=== PATIENT | female | born 1950 | race Caucasian/White ===

== ENCOUNTER 2023-10-07 18:51 | Inpatient (IN) | payer MEDICARE, SELFPAY ==
[2023-10-07] VITALS (7 sets, daily range): BP systolic 104–125; BP diastolic 77–100; PULSE 144–158; RESP 24–37; TEMP 36.6; O2SAT 88–99; BMI 19.8
--- NOTE | 2023-10-07 19:27 | XRR_ITS ---
PROCEDURE INFORMATION: Exam: XR Chest Exam date and time: 10/07/2023 8:15 PM Age: 72 years old Clinical indication: Patient HX: EMS arrival for general weakness. Afib rvr on monitor. TECHNIQUE: Imaging protocol: Radiologic exam of the chest. Views: 1 view. COMPARISON: No relevant prior studies available. FINDINGS: Lungs: Bibasilar infiltrates. Pleural spaces: Unremarkable. No pleural effusion. No pneumothorax. Heart/Mediastinum: Unremarkable. No cardiomegaly. Bones/joints: Unremarkable. XR/XR chest 1V portable [id number] IMPRESSION: Bibasilar infiltrates. Edema versus infection.
[2023-10-07] MEDS: sodium chloride 0.9% 500 ML IV (19:43)
[2023-10-07 20:14] LABS: Basophils % 0.1 %; Hematocrit 43.6 % (36-47); Lymphocytes # 0.4 10^3/uL (0.8-4.8); Lymphocytes % 2.3 %; Mean Corpuscular HGB Conc 30.3 g/dL (30-55); Mean Corpuscular Hemoglobin 28.7 pg (27-33); Mean Corpuscular Volume 94.8 fl (85-98); Mean Platelet Volume 11.2 fL (7.4-10.4); Monocytes # 0.9 10^3/uL (0.2-0.9); Monocytes % 5.3 %; Neutrophils # 14.82 10^3/uL (1.8-7.7); Neutrophils % 91.7 %; Nucleated Red Blood Cells % 0.2 %; Platelet Count 127 10^3/cmm (157-399); Red Cell Distribution Width 15.4 % (12.1-15.1); White Blood Count 16.18 10^3/uL (3.29-11.43)
--- NOTE | 2023-10-07 20:14 | ED_ITS ---
Documented by User: John Pond 10/07/23 22:27 HPI - Weakness 2 General: Chief complaint: Weakness Stated complaint: WEAKNESS Time Seen by Provider: 10/07/23 19:07 History of Present Illness: 72-year-old female presents emergency de partment chief complaint of generalized weakness and fatigue. Patient presents from home for further assessment and management patient was picked up by EMS was found to be A-fib with RVR patient has no known history of this in the past patient reports progressive shortness of breath with no chest pain. Associated symptoms: Denies chest pain, chills, fever(s), headache(s), nausea or vomiting Review of Systems 2 General: Reports: 10 or more systems reviewed and unremarkable except in HPI and below Const: Reports: fatigue and malaise; Denies: fever(s) or chills Eyes: Denies: change in vision or blurry vision Card: Reports: palpitations and irregular heart rhythm; Denies: chest pain Resp: Denies: dyspnea or productive cough GI: Denies: abdominal pain, nausea or vomiting : Denies: flank pain Musc: Denies: extremity pain or extremity swelling Skin/Breast: Denies: rash or pruritus Neuro: Denies: headache(s) Psych: Denies: anxiety or depression Jacob/Lymph: Denies: easy bleeding All/Imm: Denies: urticaria, throat swelling or facial swelling Physical Exam 2 Const: COMMON NORMALS: no acute distress (Patient however does appear somewhat anxious on exam), patient oriented x3 and healthy appearing HENMT: COMMON NORMALS: normocephalic and atraumatic HEAD & SCALP: n ormocephalic and atraumatic Eye: COMMON NORMALS: Equal, round and reactive pupils present and EOMs intact bilaterally PUPIL: Yes Equal, round and reactive pupils present Neck/C-Spine: COMMON NORMALS: full ROM, supple and no JVD Lymph: LYMPHATIC: no lymphadenopathy noted Chest: COMMONS NORMALS: normal inspection of the chest and normal palpation of entire chest wall Resp: COMMON NORMALS: normal respiratory effort, No retractions and clear to auscultation bilaterally EFFORT & INSPECTION: Yes able to speak in complete sentences and Yes symmetric chest movement AUSCULTATION: clear to auscultation bilaterally Cardio: COMMON NORMALS: no JVD and regular rate; negative for regular rhythm (Appears to be in A-fib with RVR rate of 130) R ATE: regular rate RHYTHM: abnormal rhythm (Appears to be in A-fib with RVR rate of 130) GI: COMMON NORMALS: Normal to inspection, nondistended, normoactive bowel sounds present, Soft to palpation and non-tender INSPECTION: Yes normal to inspection PALPATION: Yes Soft to palpation : COMMON NORMALS: Yes no CVA tenderness BLADDER/KIDNEY EXAM: Yes no CVA tenderness Back/Pelvis: COMMON NORMALS: no CVA tenderness Extremity: COMMON NORMALS: normal to inspection and full ROM Neuro: COMMON NORMALS: patient oriented x3, CN's II-XII intact bilaterally, moves all extremities and no focal motor deficits Psych: COMMON NORMALS: mental status grossly normal, Normal thought process present, cooperative and normal affect THOUGHT PROCESS: Normal thought process present Skin: COMMON NORMALS: no rashes or lesions noted GENERAL SKIN EXAM: no rashes or lesions noted Course 2 Vital Signs: Vital signs: Vital Signs Temperature 98 F 10/07/23 18:53 Pulse Rate 124 H 10/08/23 03:26 Respiratory Rate 22 H 10/08/23 02:30 Blood Pressure 108/85 10/08/23 02:30 Pulse Oximetry 98 10/08/23 03:26 Oxygen Delivery Me thod Nasal Cannula, Bi PAP 10/08/23 03:21 Oxygen Flow Rate 2 10/08/23 02:30 Fraction of Inspir ed Oxygen 32 10/08/23 03:26 MDM - Weakness Medical Decision Making Due to patient's symptoms and condition lab work and imaging will be obtained we will continue to follow. Patient was found to be in A-fib with RVR Concerns of sepsis due to most likely lactic acidosis due to anion gap and low CO2 patient was provided a dose of Rocephin, awaiting CT imaging of chest abdomen pelvis to result. Patient first troponin was found to be at 386 with no renal impairment to this patient was started on a Cardizem bolus drip followed by heparin discussed patient's case with Dr. garcía. This patient was signed out to my colleague Dr. Bansal at 2220. Lab Data 10/07/23 20:04 10/07/23 20:04 Radiology Impressions Chest X-Ray 10/07/23 19:27 IMPRESSION: Bibasilar infiltrates. Edema versus infection. Chest/Abdomen/Pelvis CT 10/07/23 20:37 IMPRESSION: 1. Positive for moderate to large volume bilateral pulmonary artery embolism greater in volume on right than left. 2. Dilated cardiomyopathy, bilateral pleural effusions and widespread ground-glass opacities of the lung alvarez suspicious for congestive heart failure. 3. Lung opacities may represent combination of pulmonary edema and pulmonary infarcts. 4. Indeterminate large lobulated left breast mass. This is possibly related to left breast implant rupture with granulomatous reaction, but a breast malignancy is not excluded. IMPRESSION: 1. Heterogeneously enhancing hypervascular right kidney mass consistent with a renal cell carcinoma with likely tumor thrombus extension through the right renal vein into the IVC. 2. Diffuse abdominopelvic 3rd spacing of fluid. 3. No focal acute abdominopelvic pathology. Laboratory Results WBC 16.18 10^3/uL (3.29-11.43) H 10/07/23 20:04 RBC 4.60 10^6/uL (3.85-5.65) 10/07/23 20:04 Hgb 13.20 g/dL (11.27-16.99) 10/07/23 20:04 Hct 43.6 % (36-47) 10/07/23 20:04 MCV 94.8 fl (85-98) 10/07/23 20:04 MCH 28.7 pg (27-33) 10/07/23 20: MCHC 30.3 g/dL (30-55) 10/07/23 20:04 RDW 15.4 % (12.1-15.1) H 10/07/23 20:04 Plt Count 127 10^3/cmm (157-399) L 10/07/23 20:04 MPV 11.2 fL (7.4-10.4) H 10/07/23 20:04 Neut % (Auto) 91.7 % 10/07/23 20:04 Lymph % (Auto) 2.3 % 10/07/23 20: Russell % (Auto) 5.3 % 10/07/23 20: Eos % (Auto) 0.0 % 10/07/23 20:04 Baso % (Auto) 0.1 % 10/07/23 20:04 Neut # (Auto) 14.82 10^3/uL (1.8-7.7) H 10/07/23 20:04 Lymph # (Auto) 0.4 10^3/uL (0.8-4.8) L 10/07/23 20:04 Russell # (Auto) 0.9 10^3/uL (0.2-0.9) 10/07/23 20:04 Eos # (Auto) 0.0 10^3/uL (0.0-0.8) 10/07/23 20:04 Baso # (Auto) 0.0 10^3/uL (0.0-0.1) 10/07/23 20:04 Nucleated RBC % (auto) 0.2 % 10/07/23 20:04 Nucleated RBCs # 0.0 /100WBC 10/07/23 20:04 PT 18.10 SECONDS (12.1-14.9) H 10/07/23 20:04 INR 1.45 (0.8-1.2) H 10/07/23 20:04 APTT 28.5 SECONDS (23.9-36.7) 10/07/23 20:04 Sodium 134 mmol/L (136-145) L 10/07/23 20:04 Potassium 5.6 mmol/L (3.5-5.1) H 10/07/23 20:04 Chloride 102 mmol/L (98-107) 10/07/23 20:04 Carbon Dioxide 18 mmol/L (22-29) L 10/07/23 20:04 Anion Gap 19.6 (5-19) H 10/07/23 20:04 BUN 41 mg/dL (8-23) H 10/07/23 20:04 Creatinine 1.1 mg/dL (0.5-0.9) H 10/07/23 20:04 GFR Calculation Not Reportable 10/07/23 20:04 Glucose 188 mg/dL (65-115) H 10/07/23 20:04 Estimat Average Glucose 134 10/07/23 20:04 Hemoglobin A1c 6.3 % (4.0-6.0) H 10/07/23 20:04 Calculated Osmolality 293 mOsm/kg (285-295) 10/07/23 20:04 Lactic Acid 4.5 mmol/L (0.5-2.2) H* 10/07/23 20:04 Calcium 8.4 mg/dL (8.5-10.5) L 10/07/23 20:04 Total Bilirubin 1.4 mg/dL (0.15-1.2) H 10/07/23 20:04 AST 60 U/L (0-32) H 10/07/23 20:04 ALT 52 U/L (0-33) H 10/07/23 20:04 Alkaline Phosphatase 306 U/L (35-105) H 10/07/23 20:04 Troponin T Baseline 387 ng/L (0-10) H* 10/07/23 20:04 Troponin T 120 Minute 407.3 ng/L (0-10) H 10/07/23 21:55 Delta Troponin T 20.3 ABS# (0-10) H* 10/07/23 21:55 C-Reactive Protein 103.8 mg/L (0.0-4.9) H 10/07/23 20:04 NT-Pro-B Natriuret Pep 60308 pg/mL (0-125) H 10/07/23 20:04 Total Protein 5.8 g/dL (6.6-8.7) L 10/07/23 20:04 Albumin 2.6 g/dL (3.5-5.2) L 10/07/23 20:04 Globulin 3.2 g/dL (1.3-4.6) 10/07/23 20:04 Vitamin B12 > 2000 pg/mL (232-1245) H 10/07/23 21:55 Procalcitonin 0.35 ng/mL (0-0.5) 10/07/23 21:55 TSH 2.83 uIU/mL (0.27-4.20) 10/07/23 21:55 Urine Color Dark yellow (Yellow) A 10/08/23 00:03 Urine Appearance Cloudy (CLEAR) A 10/08/23 00:03 Urine pH 5 (5-7) 10/08/23 00:03 Ur Specific [place] 1.015 (1.005-1.030) 10/08/23 00:03 Urine Protein 1+ (Negative) H 10/08/23 00:03 Urine Glucose (UA) Norm (Normal) 10/08/23 00:03 Urine Ketones Negative (Negative) 10/08/23 00:03 Urine Blood Trace (Negative) H 10/08/23 00:03 Urine Nitrate Positive (Negative) A 10/08/23 00:03 Urine Bilirubin Neg (Negative) 10/08/23 00:03 Urine Urobilinogen 4 mg/dL (Negative) H 10/08/23 00:03 Ur Leukocyte Esterase Trace (Negative) H 10/08/23 00:03 Urine RBC 5-10 /hpf (0-2) H 10/08/23 00:03 Urine WBC 15-25 /hpf (0-5) H 10/08/23 00:03 Ur Squamous Epith Cells 5-10 /hpf (0-5) H 10/08/23 00:03 Amorphous Sediment Not Reportable 10/08/23 00:03 Urine Bacteria 2+ /hpf (NONE) H 10/08/23 00:03 Hyaline Casts 5-10 /lpf H 10/08/23 00:03 Urine Mucus Trace /hpf 10/08/23 00:03 All radiology interpretation(s) finalized by discharge Discharge Plan Discharge Patient Disposition: Admitted As Inpatient Admit Provider: Justice García Clinical Impression: Non-ST elevated myocardial infarction (non-STEMI), Acute exacerbation of CHF (congestive heart failure) Condition: Stable Coding Level of Care Code ED [employer] Dist[employer] Supervisor for Chg Fwd Documented by User: Raphael Bansal DO 10/08/23 04:44 HPI - Weakness 2 General: Chief complaint: Weakness Stated complaint: WEAKNESS Time Seen by Provider: 10/07/23 19:07 Course 2 Vital Signs: Vital signs: Vital Signs Temperature 98 F 10/07/23 18:53 Pulse Rate 124 H 10/08/23 03:26 Respiratory Rate 22 H 10/08/23 02:30 Blood Pressure 108/85 10/08/23 02:30 Pulse Oximetry 98 10/08/23 03:26 Oxygen Delivery Me thod Nasal Cannula, Bi PAP 10/08/23 03:21 Oxygen Flow Rate 2 10/08/23 02:30 Fraction of Inspir ed Oxygen 32 10/08/23 03:26 MDM - Weakness Medical Decision Making Due to patient's symptoms and condition lab work and imaging will be obtained we will continue to follow. Patient was found to be in A-fib with RVR Concerns of sepsis due to most likely lactic acidosis due to anion gap and low CO2 patient was provided a dose of Rocephin, awaiting CT imaging of chest abdomen pelvis to result. Patient first troponin was found to be at 386 with no renal impairment to this patient was started on a Cardizem bolus drip followed by heparin discussed patient's case with Dr. garcía. This patient was signed out to my colleague Dr. Bansal at 2220. CTA reveals bilateral PEs, with a cardiac ratio of 0.7. Multiple other findings. She will need anticoagulation. Her heart rate has been difficult to control. She is maxed out on Cardizem currently. Spoke with hospitalist. Recommendations are amiodarone, cardiology consultation, further treatment in the ICU. Orders have been written. Lab Data 10/07/23 20:04 10/07/23 20:04 Radiology Impressions Chest X-Ray 10/07/23 19:27 IMPRESSION: Bibasilar infiltrates. Edema versus infection. Chest/Abdomen/Pelvis CT 10/07/23 20:37 IMPRESSION: 1. Positive for moderate to large volume bilateral pulmonary artery embolism greater in volume on right than left. 2. Dilated cardiomyopathy, bilateral pleural effusions and widespread ground-glass opacities of the lung alvarez suspicious for congestive heart failure. 3. Lung opacities may represent combination of pulmonary edema and pulmonary infarcts. 4. Indeterminate large lobulated left breast mass. This is possibly related to left breast implant rupture with granulomatous reaction, but a breast malignancy is not excluded. IMPRESSION: 1. Heterogeneously enhancing hypervascular right kidney mass consistent with a renal cell carcinoma with likely tumor thrombus extension through the right renal vein into the IVC. 2. Diffuse abdominopelvic 3rd spacing of fluid. 3. No focal acute abdominopelvic pathology. Laboratory Results WBC 16.18 10^3/uL (3.29-11.43) H 10/07/23 20:04 RBC 4.60 10^6/uL (3.85-5.65) 10/07/23 20:04 Hgb 13.20 g/dL (11.27-16.99) 10/07/23 20:04 Hct 43.6 % (36-47) 10/07/23 20:04 MCV 94.8 fl (85-98) 10/07/23 20:04 MCH 28.7 pg (27-33) 10/07/23 20:04 MCHC 30.3 g/dL (30-55) 10/07/23 20:04 RDW 15.4 % (12.1-15.1) H 10/07/23 20:04 Plt Count 127 10^3/cmm (157-399) L 10/07/23 20:04 MPV 11.2 fL (7.4-10.4) H 10/07/23 20:04 Neut % (Auto) 91.7 % 10/07/23 20:04 Lymph % (Auto) 2.3 % 10/07/23 20:04 Russell % (Auto) 5.3 % 10/07/23 20:04 Eos % (Auto) 0.0 % 10/07/23 20:04 Baso % (Auto) 0.1 % 10/07/23 20: Neut # (Auto) 14.82 10^3/uL (1.8-7.7) H 10/07/23 20:04 Lymph # (Auto) 0.4 10^3/uL (0.8-4.8) L 10/07/23 20:04 Russell # (Auto) 0.9 10^3/uL (0.2-0.9) 10/07/23 20:04 Eos # (Auto) 0.0 10^3/uL (0.0-0.8) 10/07/23 20:04 Baso # (Auto) 0.0 10^3/uL (0.0-0.1) 10/07/23 20:04 Nucleated RBC % (auto) 0.2 % 10/07/23 20: Nucleated RBCs # 0.0 /100WBC 10/07/23 20:04 PT 18.10 SECONDS (12.1-14.9) H 10/07/23 20:04 INR 1.45 (0.8-1.2) H 10/07/23 20:04 APTT 28.5 SECONDS (23.9-36.7) 10/07/23 20:04 Sodium 134 mmol/L (136-145) L 10/07/23 20:04 Potassium 5.6 mmol/L (3.5-5.1) H 10/07/23 20:04 Chloride 102 mmol/L (98-107) 10/07/23 20:04 Carbon Dioxide 18 mmol/L (22-29) L 10/07/23 20:04 Anion Gap 19.6 (5-19) H 10/07/23 20:04 BUN 41 mg/dL (8-23) H 10/07/23 20:04 Creatinine 1.1 mg/dL (0.5-0.9) H 10/07/23 20:04 GFR Calculation Not Reportable 10/07/23 20:04 Glucose 188 mg/dL (65-115) H 10/07/23 20:04 Estimat Average Glucose 134 10/07/23 20:04 Hemoglobin A1c 6.3 % (4.0-6.0) H 10/07/23 20:04 Calculated Osmolality 293 mOsm/kg (285-295) 10/07/23 20:04 Lactic Acid 4.5 mmol/L (0.5-2.2) H* 10/07/23 20:04 Calcium 8.4 mg/dL (8.5-10.5) L 10/07/23 20:04 Total Bilirubin 1.4 mg/dL (0.15-1.2) H 10/07/23 20:04 AST 60 U/L (0-32) H 10/07/23 20:04 ALT 52 U/L (0-33) H 10/07/23 20:04 Alkaline Phosphatase 306 U/L (35-105) H 10/07/23 20:04 Troponin T Baseline 387 ng/L (0-10) H* 10/07/23 20:04 Troponin T 120 Minute 407.3 ng/L (0-10) H 10/07/23 21:55 Delta Troponin T 20.3 ABS# (0-10) H* 10/07/23 21:55 C-Reactive Protein 103.8 mg/L (0.0-4.9) H 10/07/23 20:04 NT-Pro-B Natriuret Pep 57322 pg/mL (0-125) H 10/07/23 20:04 Total Protein 5.8 g/dL (6.6-8.7) L 10/07/23 20:04 Albumin 2.6 g/dL (3.5-5.2) L 10/07/23 20:04 Globulin 3.2 g/dL (1.3-4.6) 10/07/23 20:04 Vitamin B12 > 2000 pg/mL (232-1245) H 10/07/23 21:55 Procalcitonin 0.35 ng/mL (0-0.5) 10/07/23 21:55 TSH 2.83 uIU/mL (0.27-4.20) 10/07/23 21:55 Urine Color Dark yellow (Yellow) A 10/08/23 00:03 Urine Appearance Cloudy (CLEAR) A 10/08/23 00:03 Urine pH 5 (5-7) 10/08/23 00:03 Ur Specific [place] 1.015 (1.005-1.030) 10/08/23 00:03 Urine Protein 1+ (Negative) H 10/08/23 00:03 Urine Glucose (UA) Norm (Normal) 10/08/23 00:03 Urine Ketones Negative (Negative) 10/08/23 00:03 Urine Blood Trace (Negative) H 10/08/23 00:03 Urine Nitrate Positive (Negative) A 10/08/23 00:03 Urine Bilirubin Neg (Negative) 10/08/23 00:03 Urine Urobilinogen 4 mg/dL (Negative) H 10/08/23 00:03 Ur Leukocyte Esterase Trace (Negative) H 10/08/23 00:03 Urine RBC 5-10 /hpf (0-2) H 10/08/23 00:03 Urine WBC 15-25 /hpf (0-5) H 10/08/23 00:03 Ur Squamous Epith Cells 5-10 /hpf (0-5) H 10/08/23 00:03 Amorphous Sediment Not Reportable 10/08/23 00:03 Urine Bacteria 2+ /hpf (NONE) H 10/08/23 00:03 Hyaline Casts 5-10 /lpf H 10/08/23 00:03 Urine Mucus Trace /hpf 10/08/23 00:03 Discharge Plan Discharge Patient Disposition: Admitted As Inpatient Admit Provider: Justice García Clinical Impression: Non-ST elevated myocardial infarction (non-STEMI), Acute exacerbation of CHF (congestive heart failure) Condition: Stable Coding Level of Care Code ED [employer] Dist[employer] Supervisor for Jacey Koroma
[2023-10-07 20:29] LABS: INR 1.45 (0.8-1.2)
[2023-10-07 20:34] LABS: Partial Thromboplastin Time 28.5 SECONDS (23.9-36.7)
[2023-10-07 20:35] LABS: Alanine Aminotransferase 52 U/L (0-33); Albumin Level 2.6 g/dL (3.5-5.2); Alkaline Phosphatase 306 U/L (35-105); Aspartate Amino Transferase 60 U/L (0-32); Blood Urea Nitrogen 41 mg/dL (8-23); C Reactive Protein 103.8 mg/L (0.0-4.9); Calcium 8.4 mg/dL (8.5-10.5); Carbon Dioxide 18 mmol/L (22-29); Chloride 102 mmol/L (98-107); Creatinine Clr Calc Pharmacy 43.8648; Globulin 3.2 g/dL (1.3-4.6); Glucose 188 mg/dL (65-115); Osmolality Calculated 293 mOsm/kg (285-295); Sodium 134 mmol/L (136-145); Total Bilirubin 1.4 mg/dL (0.15-1.2); Total Protein 5.8 g/dL (6.6-8.7)
--- NOTE | 2023-10-07 20:37 | CTR_ITS ---
PROCEDURE INFORMATION: Exam: CTA Chest With Contrast Exam date and time: 10/07/2023 11:10 PM Age: 72 years old Clinical indication: Abnormal findings; Abnormal lab test; Elevated liver enzymes and elevated wbc; Other: N/a; Abnormal diagnostic tests; Shortness of breath; Prior surgery; Surgery date: 6+ months; Surgery type: Breast augmentation; Patient HX: SOB with hypoxia. Afib rvr on monitor. Elevated enzymes. Elevated lactic acid and troponins. ; Additional info: Afib with sob/hypoxia. Elevated gb enzymes TECHNIQUE: Imaging protocol: Computed tomographic angiography of the chest with contrast. Exam focused on the arteries. 3D rendering (Not supervised by radiologist): MIP and/or 3D reconstructed images were created by the technologist. Radiation optimization: All CT scans at this facility use at least one of these dose optimization techniques: automated exposure control; mA and/or kV adjustment per patient size (includes targeted exams where dose is matched to clinical indication); or iterative reconstruction. Contrast material: OMNI 350; Contrast volume: 100 ml; Contrast route: INTRAVENOUS (IV); COMPARISON: CR (CHEST, ) 10/07/2023 8:15 PM RADIATION DOSE METRICS: Total DLP (mGy-cm): 2000.96 FINDINGS: Pulmonary arteries: There is a large relatively occlusive proximal segmental pulmonary artery embolism in the lingular segments of the left upper lobe. There is a large focal thrombus in the distal right pulmonary artery which causes occlusive thrombus of multiple right lung segmental and subsegmental pulmonary arteries. Aorta: Scattered plaques throughout the thoracic aorta. Unremarkable diameter and contour. Veins: Significant contrast reflux into a distended IVC. Distended hepatic veins. Thyroid: Several small bilateral thyroid nodules which are otherwise poorly characterized. No dedicated follow-up recommended based on size criteria. Lungs: Geographic ground-glass airspace opacities in the anterior left upper lobe. Left lower lobe compressive atelectasis. Geographic parenchymal ground-glass airspace opacities in the lateral posterior right upper lobe. Widespread ground-glass attenuation changes throughout the right lower lobe. Significant segmental atelectasis changes in the right middle lobe with partial collapse. Peribronchial opacities are present. Occlusive endobronchial opacities in the central right middle lobe bronchus. Pleural spaces: Moderate to large volume right-sided pleural effusion. Small to moderate volume left-sided pleural effusion. Negative pneumothorax. Heart: Multichamber cardiac dilation. Negative for pericardial effusion. Heart RV/LV ratio: The RV to LV ratio is about 0.7 but cannot be accurately measured secondary to lack of contrast in the left ventricle at the time of imaging. Esophagus: Unremarkable thoracic esophagus. Lymph nodes: No definite axillary lymphadenopathy. No visible supraclavicular lymphadenopathy. Negative for mediastinal lymphadenopathy. Bones/joints: Unremarkable. No acute fracture. No focal suspicious bone lesion identified. Soft tissues: Body wall anasarca. Bilateral breast implants are present. There is a large amount of lobulated hyperattenuating soft tissue density in the superior anterior left chest wall predominantly cephalad to the left-sided breast implant which is causing contour deformity of tissues of uncertain etiology. There is prepectoral and sub pectoral components. Other findings: THIS REPORT CONTAINS FINDINGS THAT MAY BE CRITICAL TO PATIENT CARE. The findings were verbally communicated via telephone conference with Dr. Bansal at 12:12 AM CDT on 10/08/2023. The findings were acknowledged and understood. COMMENTS: Consistent with the [employer]'s Incidental Findings Committee white paper (J Am Franki Radiol 2015): In patients aged 35 years and older with an incidental thyroid nodule equal to or greater than 1.[address], MRI or extrathyroidal US, further evaluation with dedicated thyroid US is recommended for patients with normal life expectancy and without comorbidities. For smaller nodules without suspicious features, no further evaluation or follow up is recommended. PROCEDURE INFORMATION: Exam: CT Abdomen And Pelvis With Contrast Exam date and time: 10/07/2023 11:10 PM Age: 72 years old Clinical indication: Abnormal findings; Abnormal lab test; Elevated liver enzymes and elevated wbc; Other: N/a; Abnormal diagnostic tests; Shortness of breath; Prior surgery; Surgery date: 6+ months; Surgery type: Breast augmentation; Patient HX: SOB with hypoxia. Afib rvr on monitor. Elevated enzymes. Elevated lactic acid and troponins. ; Additional info: Afib with sob/hypoxia. Elevated gb enzymes TECHNIQUE: Imaging protocol: Computed tomography of the abdomen and pelvis with contrast. Radiation optimization: All CT scans at this facility use at least one of these dose optimization techniques: automated exposure control; mA and/or kV adjustment per patient size (includes targeted exams where dose is matched to clinical indication); or iterative reconstruction. Contrast material: OMNI 350; Contrast volume: 100 ml; Contrast route: INTRAVENOUS (IV); COMPARISON: CR (CHEST, ) 10/07/2023 8:15 PM RADIATION DOSE METRICS: Total DLP (mGy-cm): 2000.96 FINDINGS: Liver: Normal. No mass. Gallbladder and biliary ducts: Cholecystectomy. Mild ectasia of the common bile duct. Negative for intrahepatic biliary dilation. Pancreas: Normal. No ductal dilation. Spleen: Normal. No splenomegaly. Adrenal glands: Normal. No mass. Kidneys and ureters: Large partially exophytic heterogeneously enhancing mass in the upper pole of the left kidney with hypervascular components measuring at least 6.6 cm x 5.8 cm in the transaxial plane. Left kidney is unremarkable with no significant pathology. Negative for hydroureteronephrosis. Stomach and bowel: Unremarkable. No obstruction. No mucosal thickening. Appendix: No evidence of appendicitis. Intraperitoneal space: Diffuse small to moderate volume ascites. Negative for pneumoperitoneum. Vasculature: The right renal vein is very heterogeneous in appearance with abnormal enhancing component suspicious for tumor thrombus extension. There is abnormal mixed attenuation with enhancing component extending from the right renal vein confluence into the suprarenal IVC suspicious for extension of tumor thrombus. The IVC is otherwise patent. The left renal vein is patent. There is focal smoothly marginated noncalcified plaque in the left lateral wall of the proximal abdominal aorta. Additional scattered calcified plaques throughout the abdominal aorta wall. Negative for aneurysm or dissection. Moderate to severe stenosis bilateral renal arteries worse on the right than the left. Lymph nodes: Unremarkable. No enlarged lymph nodes. Urinary bladder: Unremarkable as visualized. Reproductive: Unremarkable as visualized. Bones/joints: Grade 1 L4-L5 spondylolisthesis. Negative for acute lumbar spine or pelvic fracture. No suspicious bone lesion identified. There is a sclerotic lesion in the right femoral head which is most likely benign bone island. Soft tissues: Diffuse body wall anasarca. Other findings: THIS REPORT CONTAINS FINDINGS THAT MAY BE CRITICAL TO PATIENT CARE. The findings were verbally communicated via telephone conference with Dr. Bansal at 12:12 AM CDT on 10/08/2023. The findings were acknowledged and understood. CT/CT angio chest w abd pel w con IMPRESSION: 1. Positive for moderate to large volume bilateral pulmonary artery embolism greater in volume on right than left. 2. Dilated cardiomyopathy, bilateral pleural effusions and widespread ground-glass opacities of the lung alvarez suspicious for congestive heart failure. 3. Lung opacities may represent combination of pulmonary edema and pulmonary infarcts. 4. Indeterminate large lobulated left breast mass. This is possibly related to left breast implant rupture with granulomatous reaction, but a breast malignancy is not excluded. IMPRESSION: 1. Heterogeneously enhancing hypervascular right kidney mass consistent with a renal cell carcinoma with likely tumor thrombus extension through the right renal vein into the IVC. 2. Diffuse abdominopelvic 3rd spacing of fluid. 3. No focal acute abdominopelvic pathology.
[2023-10-07 20:45] LABS: Anion Gap 19.6 (5-19); Potassium 5.6 mmol/L (3.5-5.1)
[2023-10-07 21:09] LABS: NT Pro B Type Natriuretic Pept 25440 pg/mL (0-125)
[2023-10-07 21:40] LABS: Troponin(5th) Baseline 387 ng/L (0-10)
--- NOTE | 2023-10-07 21:45 | ECG_ITS ---
[facility] Test Date: 2023-10-07 Pat Name: Lesvia Rodriguez Department: Room: Gender: Female Television Presenter: : 1950 Requested By: John Pond Order Number: [id number] Chauncey MD: Mary Kay Thomas M.D. Measurements Intervals Joffre Rate: 155 P: 0 MA: 0 QRS: 27 QRSD: 90 T: 0 QT: 276 QTc: 444 Interpretive Statements ATRIAL FIBRILLATION WITH RAPID VENTRICULAR RESPONSE LOW QRS VOLTAGE IN EXTREMITY LEADS [QRS DEFLECTION < 0.5 mV IN LIMB LEADS] No previous ECG available for comparison Electronically Signed On 10-08-2023 13:25:19 CDT by Mary Kay Thomas M.D. [id number]
[2023-10-07] MEDS: cefTRIAXone 1,000 mg SDV 1000 MG IVP (22:26)
[2023-10-07 22:27] LABS: Troponin 5 2HR 407.3 ng/L (0-10); Troponin 5 2HR Delta 20.3 ABS# (0-10)
[2023-10-07] MEDS: dilTIAZem 5 mg/mL SDV 5 mL 10 MG IVP (22:27)
[2023-10-07] MEDS: dilTIAZem 100 MG in sodium chloride 0.9% (add-van) 100 ML IV (22:45)
[2023-10-07] MEDS: heparin drip 25,000 UNIT/500 ML PREMIX 14.2 UNIT IV (22:49)
[2023-10-07] MEDS: heparin 5,000 unit/mL INJ 1 mL 4000 UNIT IVP (22:49)
[2023-10-07 23:00] LABS: Lactic Sepsis W/Reflex 4.5 mmol/L (0.5-2.2)
[2023-10-07] MEDS: iohexol 350 mg/mL 500 mL Btl (per mL) IV (23:40)
[2023-10-07 23:54] LABS: Reflex Lactate Order REFLEX LACTIC ORDERD
[2023-10-08] VITALS (14 sets, daily range): BP systolic 104–138; BP diastolic 78–112; PULSE 116–171; RESP 16–36; O2SAT 91–100; BMI 23.6
[2023-10-08 00:29] LABS: Urine Appearance Cloudy (CLEAR); Urine Color Dark Yellow (Yellow)
[2023-10-08 00:30] LABS: Bilirubin Urine Neg (Negative); Blood Urine Trace (Negative); Glucose Urine UA Norm (Normal); Ketones Urine Negative (Negative); Nitrate Urine Positive (Negative); Protein Urine 1+ (Negative); Specific Gravity, Urine 1.015 (1.005-1.030); pH Urine 5 (5-7)
[2023-10-08 00:31] LABS: Add Urine Culture? Yes; Add Urine Microscopic? YES; Bacteria Urine 2+ /hpf; Leukocyte Esterase Urine Trace (Negative); Mucus Urine TRACE /hpf; Urobilinogen Urine 4 mg/dL (Negative); WBC Urine 15-25 /hpf (0-5)
--- NOTE | 2023-10-08 01:13 | P.HP_ITS ---
Providers/Chief Complaint 2 Primary Care Provider: GAIL Hull Chief Complaint: WEAKNESS History of Present Illness Lesvia Rodriguez is a 72 year old female who present to the hospital with chief: Generalized weakness and fatigue along shortness of breath. Patient is stating that she has not noticed any chest pain but she has been noticing chest heaviness with orthopnea PND and shortness of breath for the last 3 to 4 days, she has not noticed any fever, her legs have been more swollen, she present to the hospital along her who is in another room, they are but still live together have multiple children. In the ER patient was diagnosed with renal cell cancer, thrombosed vessels around the cancer, bilateral PE right to left ventricle refused 0.7, new onset A-fib she was started on Cardizem drip along heparin Troponin is extremely high she is not complaining of chest pain at the time of evaluation She has been started on ACS protocol Heparin drip initiated Secondary to fluid overload she has received judicious septic bolus of 500 mL I requested BiPAP discontinue Cardizem and switch to amiodarone admit to ICU, patient stating that she does not want intubation chest compressions or ventilator in case of cardiac arrest Patient is stating that she would like to wait to the morning to talk with the family she does not want to talk about cancer with them at this point Review of Systems 2 Const: Reports: change in weight; Denies: fever(s) Eyes: Denies: change in vision ENMT: Denies: throat pain Card: Reports: chest pain, palpitations, irregular heart rhythm, swelling of feet/ankles and lightheadedness Resp: Reports: dyspnea GI: Reports: nausea; Denies: abdominal pain : Reports: flank pain Musc: Reports: back pain and extremity pain Skin/Breast: Reports: rash Vitals/I&O/Wt Last Vital Signs Temp 98 F 10/07/23 18:53 Pulse 156 H 10/07/23 18:53 Resp 24 H 10/07/23 18:53 BP 125/90 10/07/23 18:53 Pulse Ox 88 L 10/07/23 18:53 O2 Del Method Room Air 10/07/23 18:53 10/07/23 10/07/23 10/08/23 14:59 22:59 06:59 Intake Total 11.833 / 11.833 Balance 11.833 / 3 Weight last 48 hrs Weight 58.967 kg Physical Exam 2 Narrative: Unkept appearance GCS 15 Nonfocal neuroexam Anasarca Distended nontender abdomen Crackles with wheezing currently on 2 L nasal cannula A-fib RVR heart rate 140s Currently on heparin and Cardizem drip Able to answer simple questions Nonfocal neuroexam NIH 0 Data 10/07/23 20:04 10/07/23 20:04 Micro: Microbiology 10/07/23 22:38 Blood Culture - Preliminary Blood SPECIMEN COLLECTED 10/07/23 22:35 Blood Culture - Preliminary Blood SPECIMEN COLLECTED A&P Assessment and plan (1) Acute exacerbation of CHF (congestive heart failure): (2) Non-ST elevated myocardial infarction (non-STEMI): (3) Bilateral pulmonary embolism: (4) Renal cell cancer: (5) Breast implant in situ: (6) Pulmonary edema: (7) Endobronchial mass: (8) Breast mass, left: Plan Acute CHF exacerbation EF unknown Request echo Non-STEMI Start ACS protocol with heparin drip Load patient with aspirin Plavix Requested echo No active chest pain EKG showing A-fib RVR Renal cell mass with local extension Currently patient on heparin drip Patient will need histopathological diagnosis but considering her multiple comorbid conditions she might not be a good candidate for chemoradiotherapy, currently discussed in the morning whether she would opt for histopathological diagnosis or not at this point she is stating that she is DNR/DNI Bilateral PE Significant troponin elevation No active chest pain No signs of hypotension Submassive PE Currently on heparin drip RV to LV ratio 0.7 /From edema Will start patient on BiPAP Admit to ICU UTI: I will keep patient on Zosyn for now Abnormal transaminases likely related to CHF exacerbation YOVANY: Creatinine 1.9 Hyperkalemia 5.6 however BMP panel showed hemolyzed sample Patient lives with her who is also sick and admitted to the ER Patient carries a guarded prognosis Patient is stating that she would like to talk with her family on her own but she does not want informed her at this point Admit to ICU Attestations 2 Medical Necessity Statement*: More than 2 midnights anticipated Diagnoses Acute exacerbation of CHF (congestive heart failure) I50.9 Non-ST elevated myocardial infarction (non-STEMI) I21.4 Bilateral pulmonary embolism I26.99 Renal cell cancer C64.9 Breast implant in situ Z98.82 Pulmonary edema J81.1 Endobronchial mass R91.8 Breast mass, left N63.20
[2023-10-08 01:37] LABS: Lactic Acid level (Lactate) 3.5 mmol/L (0.5-2.2)
[2023-10-08 01:52] LABS: Procalcitonin 0.35 ng/mL (0-0.5)
[2023-10-08 03:48] LABS: Estmated Average Glucose 134; Hemoglobin A1C 6.3 % (4.0-6.0)
[2023-10-08] MEDS: FUROsemide 10 mg/mL SDV 10mL 60 MG IVP (03:52)
[2023-10-08] MEDS: piperacillin-tazobactam 3.375 GM in sodium chloride 0.9% (plus) 50 ML IV (03:53)
[2023-10-08] MEDS: clopidogrel 300 mg Tablet PO (03:53)
[2023-10-08 04:02] LABS: Thyroid Stimulating Hormone 2.83 uIU/mL (0.27-4.20)
[2023-10-08 04:24] LABS: Vitamin B12 > 2000 pg/mL (232-1245)
[2023-10-08 04:49] LABS: ABG PCO2 28.3 mmHg (35-45); Arterial Blood Gas Hematocrit 43.6 % (37-47); Base Excess ABG -5.9 mmol/L (-2.0-2.0); Blood Gas Operator Identificat JB; Blood Gas Sample Site Brachial, right; Blood Gas Sample Type Arterial; HCO3 ABG 17.5 mmol/L (22-26); Oxygen Device BIPAP; PO2 FiO2 Ratio Arterial Blood 384
[2023-10-08 05:30] LABS: Basophils % 0.1 %; Lymphocytes # 0.5 10^3/uL (0.8-4.8); Mean Corpuscular HGB Conc 30.9 g/dL (30-55); Mean Corpuscular Hemoglobin 28.5 pg (27-33); Mean Corpuscular Volume 92.3 fl (85-98); Mean Platelet Volume 11.2 fL (7.4-10.4); Monocytes % 5.6 %; Neutrophils # 16.23 10^3/uL (1.8-7.7); Neutrophils % 90.6 %; Nucleated Red Blood Cells # 0.1 /100WBC; Nucleated Red Blood Cells % 0.3 %; Platelet Count 123 10^3/cmm (157-399); Red Blood Count 4.66 10^6/uL (3.85-5.65); Red Cell Distribution Width 15.3 % (12.1-15.1)
[2023-10-08 05:46] LABS: Alanine Aminotransferase 89 U/L (0-33); Albumin Level 2.6 g/dL (3.5-5.2); Alkaline Phosphatase 311 U/L (35-105); Anion Gap 22.1 (5-19); Aspartate Amino Transferase 129 U/L (0-32); Blood Urea Nitrogen 40 mg/dL (8-23); C Reactive Protein 124.1 mg/L (0.0-4.9); Calcium 8.3 mg/dL (8.5-10.5); Carbon Dioxide 15 mmol/L (22-29); Chloride 101 mmol/L (98-107); Globulin 3.3 g/dL (1.3-4.6); Glucose 193 mg/dL (65-115); Magnesium 1.9 mg/dL (1.7-2.3); Osmolality Calculated 291 mOsm/kg (285-295); Potassium 5.1 mmol/L (3.5-5.1); Sodium 133 mmol/L (136-145); Total Bilirubin 1.2 mg/dL (0.15-1.2); Total Protein 5.9 g/dL (6.6-8.7)
[2023-10-08] MEDS: amiodarone 150 MG/100 ML PREMIX 400 MG IV (08:27)
[2023-10-08] MEDS: sennosides-docusate Tablet 1 TAB PO (08:29)
[2023-10-08] MEDS: aspirin 81 mg EC Tablet PO (08:29)
[2023-10-08] MEDS: clopidogrel 75 mg Tablet PO (08:29)
--- NOTE | 2023-10-08 13:03 | PC.NURSE ---
Pt reported to this nurse that she did not want any medications running in her IV. Patient was A&Ox4. Dr. Mendoas was called in room with patient and she stated that she didn't want any medications to be running in her IV and wanted to be comfortable.
--- NOTE | 2023-10-08 15:19 | P.PN_ITS ---
Subjective 2 Subjective: Admitted overnight. H&P and labs appreciated. On examination patient was supposed to be on an amnio drip and a heparin drip. Patient had removed oxygen and taken her IV line out. Patient was AOx3. She is able to tell me her date, name of place, date of , time of . She states she is understanding of the clinical condition she is in but she is not agreeable for treatment. Appreciate blood work, vitals. Vitals/I&O/Wt Last Vital Signs Temp 98 F 10/07/23 18:53 Pulse 116 H 10/08/23 08:29 Resp 16 10/08/23 08:29 BP 108/85 10/08/23 02:30 Pulse Ox 96 10/08/23 08:29 O2 Del Method Nasal Cannula 10/08/23 08:29 O2 Flow Rate 3 10/08/23 08:29 FiO2 32 10/08/23 03:26 10/08/23 10/08/23 10/08/23 06:59 14:59 22:59 Intake Total 81.208 / 581.208 667.949 / 667.949 Output Total 350 / 350 Balance -268.792 / 231.208 667.949 / 667.949 Weight last 48 hrs Weight 70.488 kg Weight 70.488 kg Weight 58.967 kg Physical Exam 2 Narrative: General: No acute distress, AO x3, Cachectic, chronically sick appearing bilateral Harjinder but sounds all over lung alvarez with occasional rhonchi, HEENT: PERRLA, pupils bilaterally equal and reactive Chest: Solid heart mass palpable in the left upper hemithorax. CVS: S1-S2 regular, no murmurs, tachycardia, no gallops, no rubs Abdomen: Soft, nontender, no organomegaly, bowel sounds present Neuro: No focal deficits, no facial deformity, AO x3, Data 10/08/23 05:19 10/08/23 05:19 Micro: Microbiology 10/07/23 22:38 Blood Culture - Preliminary Blood SPECIMEN COLLECTED 10/07/23 22:35 Blood Culture - Preliminary Blood SPECIMEN COLLECTED A&P Assessment and plan (1) Bilateral pulmonary embolism: (2) Non-ST elevated myocardial infarction (non-STEMI): (3) Acute exacerbation of CHF (congestive heart failure): (4) Renal cell cancer: (5) Pulmonary edema: (6) Endobronchial mass: (7) Breast mass, left: (8) Metabolic acidosis: (9) Hyponatremia: (10) Elevated lactic acid level: (11) Transaminitis: (12) Breast implant in situ: (13) Counseling regarding goals of care: (14) Refusal of blood transfusion for reasons of conscience: Plan 72-year-old with no significant past medical history, who did not follow-up with a physician for a long time presented to the ER because of generalized weakness and difficulty breathing and found to have a renal mass with concern for RCC, IVC invasion, bilateral PE, found to have elevated troponins and hypoxic respiratory failure currently in A-fib with RVR. Echocardiogram still awaited. Patient was started on an amiodarone drip for A-fib with RVR and her heart rate still remains over 100. Patient was given 150 mg of IV amiodarone bolus. Urine output of around 1000 cc since admission. Patient would have required heparin drip for anticoagulation with possible transfer to higher center for possible thrombectomy depending on the echocardiogram. Plan was to continue amiodarone drip and IV Lasix for A-fib and congestive heart failure. Need for further treatment were discussed in detail with the patient. Patient is AOx3 and states he knows he is sick but she does not want to be treated with medications any further. She states she understands without these medications she can but she wants to remain comfortable and does not want any further treatment. Possibility of transition to comfort care measures discussed in detail with the patient and she was agreeable but she does not want any IV comfort medications either. Patient decision was conveyed to her son Mr. Jewell over the phone. He verbalized understanding and is okay to go ahead with comfort measures. Plan: Transition to comfort care status only. Start on oral morphine and Ativan as needed. Oxygen for comfort. No further blood work. Vitals as per protocol. Hold off on heparin drip, amiodarone drip, antibiotics. Protonix daily DuoNeb as needed. Transfer to [facility] floor for further comfort care measures. Attestations 2 Medical Necessity Statement*: Requires further hospitalization while comfort care measures status are set up in a patient who was admitted for bilateral PE with concerns for right heart strain, non-ST elevation RI, new diagnosis of renal mass with IVC invasion, left breast mass. Critical Care Time: The high probability of a clinically significant, sudden or life threatening deterioration of the patient's [goals of care, cardiac, renal, pulmonary] s ystem(s) required my full and direct attention, intervention and personal management. The critical care time is as shown. This time is in addition to time spent performing any reported procedures but includes the following: [x] Data and vital sign review and interpretation [x] Patient assessment, examination and intervention [x] Documentation [x] Medication orders and management Critical Care Time (min): 70 Coding Level of Care Code Critical Care >/= 30 minutes Critical care time (in minutes): 70 The high probability of a clinically significant, sudden or life threatening deterioration, as referenced in this documentation, required my full and direct attention, intervention and personal management. The critical care time shown is in addition to time spent performing any reported separately billable procedures and includes the following: [x] Data and vital sign review and interpretation [x ] Patient assessment, examination and intervention [x] Medication orders and management [x] Patient/Family updates as able [x] Care Coordination and Documentation. Other Coding Information This patient has a high probability of clinically significant, sudden or life threatening deterioration of the patient's (neurological/pulmonary/cardiac/renal/ID/endocrine) systems required my full, direct attention, the highest level of physician preparedness for urgent intervention and personal management. I managed/supervised life or organ supporting interventions that required frequent physician assessment. I devoted my full attention in the ICU to the direct care of this patient for the period of time indicated above. Time I spent with family or surrogate(s) is included only if the patient was incapable of providing necessary information or participating in decision making. This time includes the following services provided: Telemetry review Hemodynamic interpretation, assessment and management Review and interpretation of CXR Review and interpretation of lab values Review and interpretation of microbiologic data and culture results Review of medications and administration Review and interpretation of Nutrition requirements and management Discussion of management with other consultants and services Clinical update to family members Diagnoses Bilateral pulmonary embolism I26.99 Non-ST elevated myocardial infarction (non-STEMI) I21.4 Acute exacerbation of CHF (congestive heart failure) I50.9 Renal cell cancer C64.9 Pulmonary edema J81.1 Endobronchial mass R91.8 Breast mass, left N63.20 Metabolic acidosis E87.20 Hyponatremia E87.1 Elevated lactic acid level R79.89 Transaminitis R74.01 Breast implant in situ Z98.82 Counseling regarding goals of care Z71.89 Refusal of blood transfusion for reasons of conscience Z53.1
[2023-10-09 10:00] VITALS: PULSE 147; O2SAT 98
[2023-10-09] MEDS: glycopyrrolate 0.2 mg/mL SDV 2 mL IV ×2 (11:23→16:48)
[2023-10-09 11:29] VITALS: RESP 19
[2023-10-09] MEDS: morphine 4 mg/mL SDV 1 mL IVP ×2 (11:29→16:49)
[2023-10-09 14:00] VITALS: PULSE 73; O2SAT 97
[2023-10-09 16:09] VITALS: PULSE 131; RESP 24; O2SAT 95
[2023-10-09 16:49] VITALS: RESP 18
[2023-10-09] MEDS: guaiFENesin 600 mg Tablet PO (18:10)
--- NOTE | 2023-10-09 21:59 | P.PN_ITS ---
Subjective 2 Subjective: She has been experiencing some phlegm buildup which she is found somewhat difficult to cough up. Vitals/I&O/Wt Last Vital Signs Temp 98 F 10/07/23 18:53 Pulse 131 H 10/09/23 16:09 Resp 18 10/09/23 16:49 BP 108/85 10/08/23 02:30 Pulse Ox 95 10/09/23 16:09 O2 Del Method Room Air 10/09/23 16:09 O2 Flow Rate 3 10/08/23 08:29 FiO2 32 10/08/23 03:26 10/09/23 10/09/23 10/09/23 06:59 14:59 22:59 Intake Total 50 50 Output Total 900 / 1250 Balance -900 / -582.051 50 Weight last 48 hrs Weight 70.443 kg Weight 70.488 kg Weight 70.488 kg Physical Exam 2 Narrative: Reclined in bed. Eyes closed. Wakes up to voice. Const: COMMON NORMALS: patient oriented x3 and alert GENERAL APPEARANCE: c ooperative ORIENTATION/CONSCIOUSNESS: Yes awake HENMT: COMMON NORMALS: oropharynx normal Neck/C-Spine: COMMON NORMALS: no JVD Resp: COMMON NORMALS: normal respiratory effort and clear to auscultation bilaterally AUSCULTATION: clear to auscultation bilaterally Cardio: COMMON NORMALS: no JVD, regular rhythm, S1 normal heart sound present, S2 normal heart sound present and No murmurs present (Cardio) RHYTHM: regular rhythm HEART SOUNDS: S1 normal heart sound present and S2 normal heart sound present GI: COMMON NORMALS: Normal to inspection, nondistended, normoactive bowel sounds present, Soft to palpation and non-tender PALPATION: Yes Soft to palpation Extremity: COMMON NORMALS: no joint enlargement and no pedal edema Neuro: COMMON NORMALS: patient oriented x3 and moves all extremities S ENSORIUM/ORIENTATION: Yes alert Skin: COMMON NORMALS: no rashes or lesions noted GENERAL SKIN EXAM: no rashes or lesions noted Data 10/08/23 05:19 10/08/23 05:19 Micro: Microbiology 10/08/23 00:03 Urine Culture - Preliminary Urine,Clean Catch 10/07/23 22:38 Blood Culture - Preliminary Blood NEGATIVE TO DATE 10/07/23 22:35 Blood Culture - Preliminary Blood NEGATIVE TO DATE A&P Assessment and plan (1) Bilateral pulmonary embolism: (2) Non-ST elevated myocardial infarction (non-STEMI): (3) Acute exacerbation of CHF (congestive heart failure): (4) Renal cell cancer: (5) Pulmonary edema: (6) Endobronchial mass: (7) Breast mass, left: (8) Metabolic acidosis: (9) Hyponatremia: (10) Elevated lactic acid level: (11) Transaminitis: (12) Breast implant in situ: (13) Counseling regarding goals of care: (14) Refusal of blood transfusion for reasons of conscience: Plan 72-year-old with no significant past medical history, who did not follow-up with a physician for a long time presented to the ER because of generalized weakness and difficulty breathing and found to have a renal mass with concern for RCC, IVC invasion, bilateral PE, found to have elevated troponins and hypoxic respiratory failure currently in A-fib with RVR. She has transitioned over to comfort measures. Discussed with caseworker protective services, discussion is underway with patient and family for arrangements for continued hospice care after discharge for both patient and her terminally ill as well. Possible bronchitis: phlegm buildup, discussed with her adding Mucinex, flutter valve. Saturating well on room air. Attestations 2 Medical Necessity Statement*: Continue end-of-life care, pending post discharge planning and arrangements for continuation after discharge. Diagnoses Bilateral pulmonary embolism I26.99 Non-ST elevated myocardial infarction (non-STEMI) I21.4 Acute exacerbation of CHF (congestive heart failure) I50.9 Renal cell cancer C64.9 Pulmonary edema J81.1 Endobronchial mass R91.8 Breast mass, left N63.20 Metabolic acidosis E87.20 Hyponatremia E87.1 Elevated lactic acid level R79.89 Transaminitis R74.01 Breast implant in situ Z98.82 Counseling regarding goals of care Z71.89 Refusal of blood transfusion for reasons of conscience Z53.1
--- NOTE | 2023-10-10 12:47 | PC.NURSE ---
chris pending ride from [facility]
[2023-10-10 13:20] VITALS: RESP 18
[2023-10-10] MEDS: morphine 4 mg/mL SDV 1 mL IVP (13:20)
[2023-10-10] MEDS: glycopyrrolate 0.2 mg/mL SDV 2 mL IV (13:21)
--- NOTE | 2023-10-10 14:11 | PC.NURSE ---
report called to Kylah girard [facility]
[2023-10-10 14:44] LABS: SARS Covid-2 Antigen negative (Negative)
--- NOTE | 2023-10-10 22:01 | PM.DCS ---
Discharge Providers Date of Admission: 10/08/23 01:14 Date of Discharge: October 10, 2023 Attending Provider at Admission: Justice García MD Attending Provider at Discharge: Jean Paul Beltrán Primary Care Provider: GAIL Hull Diagnoses at Discharge Discharge Diagnosis (1) Bilateral pulmonary embolism: Status: Acute (2) Non-ST elevated myocardial infarction (non-STEMI): Status: Acute (3) Acute exacerbation of CHF (congestive heart failure): Status: Acute (4) Renal cell cancer: Status: Acute (5) Pulmonary edema: Status: Acute (6) Endobronchial mass: Status: Acute (7) Breast mass, left: Status: Acute (8) Metabolic acidosis: Status: Acute (9) Hyponatremia: Status: Acute (10) Elevated lactic acid level: Status: Acute (11) Transaminitis: Status: Acute (12) Breast implant in situ: Status: Acute (13) Counseling regarding goals of care: Status: Acute (14) Refusal of blood transfusion for reasons of conscience: Status: Acute Reason for Visit Reason for Visit: WEAKNESS Hospital Course Hospital Course Pleasant 72-year-old lady Spiritism, not accepting blood products, admitted due to generalized weakness, shortness of breath, found to have bilateral pulmonary emboli, as well as new renal, as well as left breast mass with possible endobronchial lesion RVR. On amiodarone drip, heparin drip, IV Lasix for decompensated congestive heart failure, with further assessments planned including echocardiogram, however, on further discussion of goals of care continue with allopathic medical treatments. Her has also been critically ill. He was to transition to hospice care with comfort measures which she continue after being kindly accepted at [facility]. Physical Exam Narrative: Reclined in bed. Eyes closed. Wakes up to voice. Const: COMMON NORMALS: patient oriented x3 and alert GENERAL APPEARANCE: cooperative ORIENTATION/CONSCIOUSNESS: Yes awake HENMT: COMMON NORMALS: oropharynx normal Neck/C-Spine: COMMON NORMALS: no JVD Resp: COMMON NORMALS: normal respiratory effort and clear to auscultation bilaterally AUSCULTATION: clear to auscultation bilaterally OTHER: Reports phlegm is improving. Declines Mucinex. Okay to continue flutter valve. Cardio: COMMON NORMALS: no JVD, regular rhythm, S1 normal heart sound present, S2 normal heart sound present and No murmurs present (Cardio) RHYTHM: regular rhythm HEART SOUNDS: S1 normal heart sound present and S2 normal heart sound present GI: COMMON NORMALS: Normal to inspection, nondistended, normoactive bowel sounds present, Soft to palpation and non-tender PALPATION: Yes Soft to palpation Extremity: COMMON NORMALS: no joint enlargement and no pedal edema Neuro: COMMON NORMALS: patient oriented x3 and moves all extremities SENSORIUM/ORIENTATION: Yes alert Skin: COMMON NORMALS: no rashes or lesions noted GENERAL SKIN EXAM: no rashes or lesions noted Discharge Data Studies Completed and Pending Completed Studies During Hospitalization Category Date Time Status CT angio chest w abd pel w con Stat Cat Scan 10/07/23 20:37 Completed XR chest 1V portable [id number] Stat Exams 10/07/23 19:27 Completed Pending at discharge Category Date Time Status Blood Culture Stat Lab 10/07/23 22:38 Results Urine Culture Stat Lab 10/08/23 00:03 Results Radiology Impressions Chest X-Ray 10/07/23 19:27 IMPRESSION: Bibasilar infiltrates. Edema versus infection. Chest/Abdomen/Pelvis CT 10/07/23 20:37 IMPRESSION: 1. Positive for moderate to large volume bilateral pulmonary artery embolism greater in volume on right than left. 2. Dilated cardiomyopathy, bilateral pleural effusions and widespread ground-glass opacities of the lung alvarez suspicious for congestive heart failure. 3. Lung opacities may represent combination of pulmonary edema and pulmonary infarcts. 4. Indeterminate large lobulated left breast mass. This is possibly related to left breast implant rupture with granulomatous reaction, but a breast malignancy is not excluded. IMPRESSION: 1. Heterogeneously enhancing hypervascular right kidney mass consistent with a renal cell carcinoma with likely tumor thrombus extension through the right renal vein into the IVC. 2. Diffuse abdominopelvic 3rd spacing of fluid. 3. No focal acute abdominopelvic pathology. Laboratory Results WBC 17.90 10^3/uL (3.29-11.43) H 10/08/23 05:19 RBC 4.66 10^6/uL (3.85-5.65) 10/08/23 05:19 Hgb 13.30 g/dL (11.27-16.99) 10/08/23 05:19 Hct 43.0 % (36-47) 10/08/23 05:19 MCV 92.3 fl (85-98) 10/08/23 05:19 MCH 28.5 pg (27-33) 10/08/23 05:19 MCHC 30.9 g/dL (30-55) 10/08/23 05:19 RDW 15.3 % (12.1-15.1) H 10/08/23 05:19 Plt Count 123 10^3/cmm (157-399) L 10/08/23 05:19 MPV 11.2 fL (7.4-10.4) H 10/08/23 05:19 Neut % (Auto) 90.6 % 10/08/23 05:19 Lymph % (Auto) 3.0 % 10/08/23 05:19 [place] % (Auto) 5.6 % 10/08/23 05:19 Eos % (Auto) 0.0 % 10/08/23 05:19 Baso % (Auto) 0.1 % 10/08/23 05:19 Neut # (Auto) 16.23 10^3/uL (1.8-7.7) H 10/08/23 05:19 Lymph # (Auto) 0.5 10^3/uL (0.8-4.8) L 10/08/23 05:19 [place] # (Auto) 1.0 10^3/uL (0.2-0.9) H 10/08/23 05:19 Eos # (Auto) 0.0 10^3/uL (0.0-0.8) 10/08/23 05:19 Baso # (Auto) 0.0 10^3/uL (0.0-0.1) 10/08/23 05:19 Nucleated RBC % (auto) 0.3 % 10/08/23 05:19 Nucleated RBCs # 0.1 /100WBC 10/08/23 05:19 PT 18.10 SECONDS (12.1-14.9) H 10/07/23 20:04 INR 1.45 (0.8-1.2) H 10/07/23 20:04 APTT 64.0 SECONDS (23.9-36.7) H D 10/08/23 05:19 Specimen Type Arterial 10/08/23 04:00 Sample Site Brachial, right 10/08/23 04:00 ABG pH 7.40 (7.35-7.45) 10/08/23 04:00 ABG pCO2 28.3 mmHg (35-45) L 10/08/23 04:00 ABG pO2 123.0 mmHg (80.0-100.0) H 10/08/23 04:00 ABG PO2/FiO2 Ratio 384 10/08/23 04:00 ABG HCO3 17.5 mmol/L (22-26) L 10/08/23 04:00 ABG Base Excess -5.9 mmol/L (-2.0-2.0) L 10/08/23 04:00 Ranjeet Test N/a 10/08/23 04:00 Hematocrit 43.6 % (37-47) 10/08/23 04:00 O2 Delivery Device Bipap 10/08/23 04:00 FiO2 32.0 % 10/08/23 04:00 Tire Repairer ID Ronan 10/08/23 04:00 Sodium 133 mmol/L (136-145) L 10/08/23 05:19 Potassium 5.1 mmol/L (3.5-5.1) 10/08/23 05:19 Chloride 101 mmol/L (98-107) 10/08/23 05:19 Carbon Dioxide 15 mmol/L (22-29) L 10/08/23 05:19 Anion Gap 22.1 (5-19) H 10/08/23 05:19 BUN 40 mg/dL (8-23) H 10/08/23 05:19 Creatinine 1.0 mg/dL (0.5-0.9) H 10/08/23 05:19 GFR Calculation Not Reportable 10/08/23 05:19 Glucose 193 mg/dL (65-115) H 10/08/23 05:19 Estimat Average Glucose 134 10/07/23 20:04 Hemoglobin A1c 6.3 % (4.0-6.0) H 10/07/23 20:04 Calculated Osmolality 291 mOsm/kg (285-295) 10/08/23 05:19 Lactic Acid 4.5 mmol/L (0.5-2.2) H* 10/07/23 20:04 Lactic Acid (Sepsis) 3.5 mmol/L (0.5-2.2) H 10/08/23 01:14 Calcium 8.3 mg/dL (8.5-10.5) L 10/08/23 05:19 Magnesium 1.9 mg/dL (1.7-2.3) 10/08/23 05:19 Total Bilirubin 1.2 mg/dL (0.15-1.2) 10/08/23 05:19 AST 129 U/L (0-32) H 10/08/23 05:19 ALT 89 U/L (0-33) H 10/08/23 05:19 Alkaline Phosphatase 311 U/L (35-105) H 10/08/23 05:19 Troponin T Baseline 387 ng/L (0-10) H* 10/07/23 20:04 Troponin T 120 Minute 407.3 ng/L (0-10) H 10/07/23 21:55 Delta Troponin T 20.3 ABS# (0-10) H* 10/07/23 21:55 C-Reactive Protein 124.1 mg/L (0.0-4.9) H 10/08/23 05:19 NT-Pro-B Natriuret Pep [id number] pg/mL (0-125) H 10/07/23 20:04 Total Protein 5.9 g/dL (6.6-8.7) L 10/08/23 05:19 Albumin 2.6 g/dL (3.5-5.2) L 10/08/23 05:19 Globulin 3.3 g/dL (1.3-4.6) 10/08/23 05:19 Vitamin B12 > 2000 pg/mL (232-1245) H 10/07/23 21:55 Procalcitonin 0.35 ng/mL (0-0.5) 10/07/23 21:55 TSH 2.83 uIU/mL (0.27-4.20) 10/07/23 21:55 Urine Color Dark yellow (Yellow) A 10/08/23 00:03 Urine Appearance Cloudy (CLEAR) A 10/08/23 00:03 Urine pH 5 (5-7) 10/08/23 00:03 Ur Specific [place] 1.015 (1.005-1.030) 10/08/23 00:03 Urine Protein 1+ (Negative) H 10/08/23 00:03 Urine Glucose (UA) Norm (Normal) 10/08/23 00:03 Urine Ketones Negative (Negative) 10/08/23 00:03 Urine Blood Trace (Negative) H 10/08/23 00:03 Urine Nitrate Positive (Negative) A 10/08/23 00:03 Urine Bilirubin Neg (Negative) 10/08/23 00:03 Urine Urobilinogen 4 mg/dL (Negative) H 10/08/23 00:03 Ur Leukocyte Esterase Trace (Negative) H 10/08/23 00:03 Urine RBC 5-10 /hpf (0-2) H 10/08/23 00:03 Urine WBC 15-25 /hpf (0-5) H 10/08/23 00:03 Ur Squamous Epith Cells 5-10 /hpf (0-5) H 10/08/23 00:03 Amorphous Sediment Not Reportable 10/08/23 00:03 Urine Bacteria 2+ /hpf (NONE) H 10/08/23 00:03 Hyaline Casts 5-10 /lpf H 10/08/23 00:03 Urine Mucus Trace /hpf 10/08/23 00:03 SARS-CoV-2 Ag (Rapid) negative (Negative) 10/10/23 14:04 Vitals Last Vital Signs Temp 98 F 10/07/23 18:53 Pulse 131 H 10/09/23 16:09 Resp 18 10/10/23 13:20 BP 108/85 10/08/23 02:30 Pulse Ox 95 10/09/23 16:09 O2 Del Method Room Air 10/09/23 16:09 O2 Flow Rate 3 10/08/23 08:29 FiO2 32 10/08/23 03:26 Discharge Plan Discharge Patient Disposition: Hospice - Medical Facility Condition: Stable Prescriptions: New morphine concentrate 10 mg/0.5 mL Syringe 2 - 10 mg sublingual Q2H PRN (Reason: Moderate To Severe Pain or SOB) Qty: 2 0RF alprazolam 1 mg tablet 0.5 mg PO TID PRN (Reason: anxiety) Qty: 4 0RF Discharge Orders: Discharge Order (Routine); Ordered 10/10/23 Ordered By: Jean Paul Beltrán Referrals: [facility] [Other] Merged With [facility] [Outside] [facility] [Outside] Oksana Boyce, HEEL ATTACHER-C [Family Provider] - 4-7 days Patient Instructions: Hospice Care (GEN) Activity Restrictions/Additional Instructions: Continue hospice care. Comfort medicines as per comfort pack. Continue flutter valve for bronchitis component. Discharge Attestations Time Spent in Discharge Care*: greater than 30 min Quality Metrics Clinical Quality Measures [ No reported AMI, CVA or VTE this stay] Coding Level of Care Code 56487 Total time (in minutes) for Discharge: 40 Diagnoses Bilateral pulmonary embolism I26.99 Non-ST elevated myocardial infarction (non-STEMI) I21.4 Acute exacerbation of CHF (congestive heart failure) I50.9 Renal cell cancer C64.9 Pulmonary edema J81.1 Endobronchial mass R91.8 Breast mass, left N63.20 Metabolic acidosis E87.20 Hyponatremia E87.1 Elevated lactic acid level R79.89 Transaminitis R74.01 Breast implant in situ Z98.82 Counseling regarding goals of care Z71.89 Refusal of blood transfusion for reasons of conscience Z53.1
== END 2023-10-10 15:22 | disposition hospice, inpatient (51) | DRG 175 ==
LOC: ER 22:27 → ICU 10-08 01:51 → MEDSURG 10-08 13:27
PROVIDERS: Admitting Provider Internal Medicine; Emergency Provider Emergency Medicine; Family Provider Nurse Practitioner; Visit Provider Internal Medicine
DX: I26.99 Other pulmonary embolism without acute cor pulmonale (principal); I21.4 Non-ST elevation (NSTEMI) myocardial infarction; C64.9 Malignant neoplasm of unspecified kidney, except renal pelvis; E87.1 Hypo-osmolality and hyponatremia; E87.20 Acidosis, unspecified; J81.1 Chronic pulmonary edema; I48.91 Unspecified atrial fibrillation; Z98.82 Breast implant status; Z66 Do not resuscitate; Z53.1 Procedure and treatment not carried out because of patient's decision for reasons of belief and group pressure; R91.8 Other nonspecific abnormal finding of lung field; N63.0 Unspecified lump in unspecified breast; I50.9 Heart failure, unspecified; Z51.5 Encounter for palliative care
CPT/HCPCS: 36415; 71045; 71275; 74177; 80053; 81001; 82607; 82803; 83036; 83605; 83735; 83880; 84145; 84443; 84484; 85025; 85610; 85730; 86140; 87040; 87086; 87186; 87426; 93005; 94660; 94664; 96365; 96366; 96367; 96374; 96375; 99291; J0283; J0696; J1644; J1940; J2270; J2543; J3490; J7040; Q9967